=== PATIENT | female | born 1935 | race Caucasian/White ===

== ENCOUNTER 2017-08-27 14:10 | Day surgery (SDC) | payer MEDICARE, OTHER ==
[2017-08-27 15:17] LABS: ADD MAN DIFF? NO
[2017-08-27 15:19] LABS: ABNORMAL IP MESSAGE 1; BASOPHILS % 0.2 % (0.0-2.0); EOSINOPHILS % 0.2 % (0.0-7.0); HEMATOCRIT 38.8 % (37.0-47.0); HEMOGLOBIN 12.8 g/dl (12.0-16.0); LYMPHOCYTES # 0.4 10^3/ul (0.8-2.9); LYMPHOCYTES % 3.1 % (15.0-51.0); MEAN CORPUSCULAR HEMOGLOBIN 30.9 pg (29.0-33.0); MEAN CORPUSCULAR VOLUME 93.7 fl (82.0-101.0); MEAN PLATELET VOLUME 10.2 fl (7.4-10.4); MONOCYTE # 0.3 10^3/ul (0.3-0.9); NEUTROPHILS % 94.1 % (39.0-77.0); PLATELET COUNT 283 10^3/UL (140-415); RED BLOOD COUNT 4.14 10^6/ul (4.20-5.40); RED CELL DISTRIBUTION WIDTH 13.8 % (11.5-14.5)
[2017-08-27 15:19] LABS: WHITE BLOOD COUNT 12.8 10^3/ul (4.8-10.8)
[2017-08-27 15:24] LABS: HOLD TRANSMISSIONS 1; POSITIVE DIFF @See below
[2017-08-27 15:37] LABS: ALANINE AMINOTRANSFERASE 43 IU/L (13-69); ALBUMIN 3.7 g/dl (3.3-4.9); ALBUMIN/GLOBULIN RATIO 0.97; ALKALINE PHOSPHATASE 100 IU/L (42-121); ANION GAP 16 (8-16); ASPARTATE AMINO TRANSFERASE 28 IU/L (15-46); BILIRUBIN,INDIRECT 0.5 mg/dl (0-1.1); BILIRUBIN,TOTAL 0.5 mg/dl (0.2-1.3); CARBON DIOXIDE 31 mmol/L (21-31); GLUCOSE 109 mg/dl (70-220); TOTAL PROTEIN 7.5 g/dl (6.1-8.1)
[2017-08-27 15:41] LABS: INR 1.02; PARTIAL THROMBOPLASTIN TIME 30.3 Sec (25.0-35.0); PROTIME 13.5 Sec (11.9-14.9); PT RATIO 1.1
[2017-08-27 15:58] LABS: BLOOD UREA NITROGEN 16 mg/dl (7-20); CALCIUM 9.2 mg/dl (8.4-10.2); POTASSIUM 4.2 mmol/L (3.5-5.1); SODIUM 138 mmol/L (135-144)
[2017-08-27 16:11] LABS: CHLORIDE 95 mmol/L (97-110)
== END 2017-08-27 18:36 | disposition home or self-care (01) ==
LOC: SDS 14:10
DX: I70.248 Atherosclerosis of native arteries of left leg with ulceration of other part of lower leg (principal); L97.829 Non-pressure chronic ulcer of other part of left lower leg with unspecified severity; I10 Essential (primary) hypertension; J44.9 Chronic obstructive pulmonary disease, unspecified
CPT/HCPCS: 11042; 71045; 80053; 85025; 85610; 85730; 93005

== ENCOUNTER 2017-09-30 09:52 | Day surgery (SDC) | payer MEDICARE, OTHER ==
[~2017-09-30 09:52] MED LIST: CEFAZOLIN 1 GM INJ
[2017-09-30] MEDS ORDERED: PROPOFOL 20 ML (10:25)
[2017-09-30] MEDS ORDERED: LIDOCAINE 2% (SDV) 5 ML INJ (10:25)
[2017-09-30] MEDS ORDERED: ONDANSETRON 4 MG INJ (10:25)
[2017-09-30 11:15] LABS: ADD MAN DIFF? NO
[2017-09-30 11:21] LABS: ABNORMAL IP MESSAGE 1; BASOPHILS % 0.3 % (0.0-2.0); EOSINOPHILS % 0.1 % (0.0-7.0); HEMATOCRIT 40.9 % (37.0-47.0); HEMOGLOBIN 13.3 g/dl (12.0-16.0); LYMPHOCYTES # 0.3 10^3/ul (0.8-2.9); LYMPHOCYTES % 1.9 % (15.0-51.0); MEAN CORPUSCULAR HEMOGLOBIN 31.5 pg (29.0-33.0); MEAN CORPUSCULAR HGB CONC 32.5 g/dl (32.0-37.0); MEAN CORPUSCULAR VOLUME 96.9 fl (82.0-101.0); MEAN PLATELET VOLUME 9.9 fl (7.4-10.4); MONOCYTE # 0.4 10^3/ul (0.3-0.9); MONOCYTES % 2.4 % (0.0-11.0); NEUTROPHIL # 14.1 10^3/ul (1.6-7.5); NEUTROPHILS % 94.9 % (39.0-77.0); PLATELET COUNT 295 10^3/UL (140-415); RED BLOOD COUNT 4.22 10^6/ul (4.20-5.40); RED CELL DISTRIBUTION WIDTH 14.1 % (11.5-14.5)
[2017-09-30 11:22] LABS: HOLD TRANSMISSIONS 1; POSITIVE DIFF @See below
[2017-09-30 11:39] LABS: ANION GAP 15 (8-16); CARBON DIOXIDE 34 mmol/L (21-31); GLUCOSE 97 mg/dl (70-220)
[2017-09-30 11:45] LABS: BLOOD UREA NITROGEN 17 mg/dl (7-20); CALCIUM 9.1 mg/dl (8.4-10.2); POTASSIUM 4.1 mmol/L (3.5-5.1); SODIUM 138 mmol/L (135-144)
[2017-09-30 11:47] LABS: CHLORIDE 93 mmol/L (97-110); CREATININE 0.39 mg/dl (0.44-1.00)
[2017-09-30] MEDS ORDERED: MIDAZOLAM 1 MG/ML 2 ML INJ (11:53)
[2017-09-30 12:17] LABS: INR 1.03; PROTIME 13.6 Sec (11.9-14.9); PT RATIO 1.1
[2017-09-30 12:18] LABS: PARTIAL THROMBOPLASTIN TIME 28.7 Sec (25.0-35.0)
[2017-09-30] MEDS ORDERED: FENTAnyl 50 MCG/ML VIAL (12:22)
[2017-09-30 13:14] LABS: WHITE BLOOD COUNT 14.9 10^3/ul (4.8-10.8)
[2017-09-30 13:27] LABS: ADD UMIC YES; UR ASCORBIC ACID NEGATIVE (NEGATIVE); UR BACTERIA FEW /HPF (NONE SEEN); UR BILIRUBIN (Dip) NEGATIVE (NEGATIVE); UR BLOOD (Dip) NEGATIVE (NEGATIVE); UR CLARITY CLEAR (CLEAR); UR COLOR STRAW (YELLOW); UR GLUCOSE (Dip) NEGATIVE (NEGATIVE); UR KETONES (Dip) NEGATIVE (NEGATIVE); UR LEUKOCYTE ESTERASE (Dip) 1+ Leu/ul (NEGATIVE); UR NITRITE (Dip) NEGATIVE (NEGATIVE); UR RBC 2 /HPF (0-5); UR SPECIFIC GRAVITY (Dip) 1.005 (1.003-1.030); UR TOTAL PROTEIN (Dip) NEGATIVE (NEGATIVE); UR UROBILINOGEN (Dip) NEGATIVE (NEGATIVE); UR WBC 5 /HPF (0-5)
[2017-09-30] MEDS ORDERED: ONDANSETRON 4 MG INJ IV (13:30)
== END 2017-09-30 14:45 | disposition home or self-care (01) ==
LOC: SDS 09:52
DX: I70.248 Atherosclerosis of native arteries of left leg with ulceration of other part of lower leg (principal); L97.829 Non-pressure chronic ulcer of other part of left lower leg with unspecified severity; I10 Essential (primary) hypertension; J44.9 Chronic obstructive pulmonary disease, unspecified
CPT/HCPCS: 11042; 80048; 81001; 85025; 85610; 85730; 93005

== ENCOUNTER 2017-11-16 07:35 | Day surgery (SDC) | payer BC, MEDICARE, OTHER ==
[2017-11-16] MEDS ORDERED: MIDAZOLAM 1 MG/ML 2 ML INJ (09:57)
[2017-11-16] MEDS ORDERED: FENTAnyl 50 MCG/ML VIAL (09:57)
[2017-11-16] MEDS ORDERED: CEFAZOLIN 1 GM INJ (10:41)
== END 2017-11-16 11:56 | disposition home or self-care (01) ==
LOC: SDS 07:35
DX: I70.248 Atherosclerosis of native arteries of left leg with ulceration of other part of lower leg (principal); L97.829 Non-pressure chronic ulcer of other part of left lower leg with unspecified severity; I10 Essential (primary) hypertension; E78.5 Hyperlipidemia, unspecified; J44.9 Chronic obstructive pulmonary disease, unspecified
CPT/HCPCS: 11042

== ENCOUNTER 2017-12-07 07:14 | Day surgery (SDC) | payer BC ==
[2017-12-07] MEDS: LACTATED RINGER'S 1,000 ML IV (08:41)
[2017-12-07] MEDS ORDERED: MIDAZOLAM 1 MG/ML 2 ML INJ (09:12)
[2017-12-07] MEDS ORDERED: FENTAnyl 50 MCG/ML VIAL (09:12)
[2017-12-07] MEDS ORDERED: CEFAZOLIN 1 GM INJ (09:37)
[2017-12-07] MEDS ORDERED: DIPHENHYDRAMINE 50 MG INJ IV (10:30)
[2017-12-07] MEDS ORDERED: HYDROmorphONE 1 MG/5 ML IV SYRINGE IV (10:30)
[2017-12-07] MEDS ORDERED: FENTAnyl 50 MCG/ML VIAL IV (10:30)
[2017-12-07] MEDS ORDERED: ONDANSETRON 4 MG INJ IV (10:30)
== END 2017-12-07 10:54 | disposition home or self-care (01) ==
LOC: SDS 07:14
DX: I70.238 Atherosclerosis of native arteries of right leg with ulceration of other part of lower leg (principal); L97.819 Non-pressure chronic ulcer of other part of right lower leg with unspecified severity
CPT/HCPCS: 11042